=== PATIENT | male | born 1990 | race African-American/Black ===

== ENCOUNTER 2022-10-12 11:03 | Emergency (ER) | payer MEDICAID, SELFPAY ==
[2022-10-12 11:09] VITALS: BP 107/74; PULSE 93; RESP 18; TEMP 36.9; O2SAT 100; BMI 28.9
--- NOTE | 2022-10-12 11:13 | ED_ITS ---
HPI - General Adult General Time Seen by Provider: 11:13 Date Seen: 10/12/22 Chief complaint: Extremity Pain/Injury, Upper Stated complaint: chest pain Time Seen by Provider: 10/12/22 11:13 Source: patient and RN notes reviewed Mode of arrival: ambulatory Limitations: no limitations History of Present Illness HPI narrative: Patient is having complaint of pain along his left anterior axillary area. He states he felt the muscles jumping in there for brief. This morning. States it really hurts to lay on that side of his chest. Denies any recent injury or trauma but states he was injured a while back at work. He states he feels numb on the back of the shoulder at times. It hurts in the shoulder. No acute trauma or injury noted. No fevers or chills. He has not been ill with anything no cough or cold symptoms. No associated GI symptoms. No fevers or chills. Is not aware of any palpable mass or lesion in the anterior axilla area. Patient is being treated for a herniated disc per report in his lumbar spine. Patient is been having symptoms for days now but when he awoke this morning it was really painful. Usually sleeps on his side. Related Data Home Medications Medication Instructions Recorded Confirmed gabapentin 300 mg capsule mg 10/12/22 Previous Rx's Medication Instructions Recorded cyclobenzaprine 10 mg tablet 10 mg PO TID PRN muscle spasm #20 10/12/22 tabs Allergies Allergy/AdvReac Type Severity Reaction Status Date / Time No Known Drug Allergies Allergy Verified 10/12/22 11:12 Review of Systems Status of ROS: Reports: 6 or more systems reviewed and unremarkable except as noted in History and below Exam Const: Vital Signs, click to edit/add: Vital Signs - 24 hr 10/12/22 11:09 Temperature 98.5 F Pulse Rate [Right Pulse Oximeter] 93 Respiratory Rate 18 Blood Pressure [Ri ght Upper Arm] 107/74 Pulse Oximetry 100 Oxygen Delivery Me thod Room Air Documenting provider has reviewed patient's vital signs: yes Common normals: no apparent distress, average body habitus, oriented x3, no limitations, healthy appearing, alert and well nourished General appearance: cooperative, comfortable, well kempt and well developed Other: Patient did take off his clothing when I was in the room. Is easily able to reach is arms over his head without any difficulty. On my examination, complains of left paresis spinous tenderness no midline tenderness over the neck. Complains of pain throughout his thoracic spine, left interscapular area, left trapezius. Clavicle and AC joint are nontender on the left. Has good full range of motion of his left glenohumeral joint but complains of pain generally on range of motion. Complains of significant pain when I palpate along the left anterior axillary line in the left axilla, over the left anterior chest wall diffusely in into the left costochondral junctions, sternum. He has diffuse tenderness and states it hurts when I palpate throughout everywhere on his left chest wall. There are no palpable lesions, no visible skin changes. Does have more prominent gynecomastia but is symmetric. HENMT: Common normals: normocephalic, head/scalp atraumatic, hearing grossly normal bilaterally, external ears normal, external nose normal and nasal mucous membranes and turbinates normal Head and scalp: normocephalic and atraumatic Nose: external nose normal and nasal mucous membranes and turbinates normal External ear: external ears normal Eye: Common normals: PERRL, EOMs intact bilaterally, conjunctivae normal and no scleral icterus Conjunctiva: conjunctiva(e) normal Pupil: PERRL Neck & C-Spine: Common normals: full ROM, no lymphadenopathy, supple, no meningeal signs, no JVD and thyroid normal Thyroid: thyroid normal Chest: Common normals: inspection of chest normal Other: Diffuse left chest wall tenderness, see above Resp: Common normals: normal respiratory effort, no retractions, no use of accessory muscles and clear to auscultation bilaterally Effort & inspection: able to speak in complete sentences Auscultation: clear to auscultation bilaterally Cardio: Common normals: no JVD, regular rate, regular rhythm, S1 normal heart sound, S2 normal heart sound, no gallops, no clicks, no murmurs and no rub Rate: regular rate Rhythm: regular rhythm Heart sounds: S1 normal and S2 normal GI: Common normals: Normal to inspection, nondistended, normoactive bowel sounds present and soft to palpation Palpation: soft Neuro: Common normals: oriented x3 Sensorium/orientation: alert Meningeal signs: no meningeal signs Psych: Appearance: well kempt Course Course Hospital Course: Reviewed with patient that we would undertake some imaging, will do chest x-ray in his left shoulder. Will also look at the unlikely possibility of cardiac issues, will obtain an EKG and troponin. This really seems clinically to be musculoskeletal but will do some brief evaluation to ensure were not missing underlying significant pathology. Reevaluation(s) Reevaluation #1: Reviewed with patient his normal imaging on his chest x-ray in his left shoulder. His EKG is reassuring, troponin is normal as is his CBC. We discussed conservative management, he is comfortable with the plan. Time: 12:52 Vital Signs Vital signs: Initial Vital Signs Temperature 98.5 F 10/12/22 11:09 Temperature Source Temporal Artery Scan 10/12/22 11:09 Pulse Rate 93 10/12/22 11:09 Respiratory Rate 18 10/12/22 11:09 Blood Pressure 107/74 10/12/22 11:09 Blood Pressure Mean 85 10/12/22 11:09 Blood Pressure Position Sitting 10/12/22 11:09 Pulse Oximetry 100 10/12/22 11:09 Oxygen Delivery Method 10/12/22 11:09 Vital Signs Temperature 98.5 F 10/12/22 11:09 Pulse Rate 93 10/12/22 11:09 Respiratory Rate 18 10/12/22 11:09 Blood Pressure 107/74 10/12/22 11:09 Pulse Oximetry 100 10/12/22 11:09 Oxygen Delivery Method 10/12/22 11:09 Temperature 98.5 F 10/12/22 11:09 Pulse Rate 93 10/12/22 11:09 Respiratory Rate 18 10/12/22 11:09 Blood Pressure 107/74 10/12/22 11:09 Pulse Oximetry 100 10/12/22 11:09 Oxygen Delivery Method 10/12/22 11:09 Medical Decision Making Lab Data Lab results reviewed: Yes I reviewed the patient's lab results Labs: Lab Results 10/12/22 10/12/22 Range/Units 12:00 12:00 WBC 5.53 (4.50-11.00) K/uL RBC 5.46 (4.30-5.90) m/uL Hgb 15.5 (13.5-17.5) gm/dL Hct 46.0 (37.0-53.0) % MCV 84 (80-100) fL MCH 28 (26-34) pg MCHC 34 (32-36) gm/dL RDW Coeff of Ren 12.8 (11.5-15.5) % Plt Count 275 (140-440) K/uL Neut % (Auto) 39.6 L (42.0-72.0) % Lymph % (Auto) 49.7 H (20-44) % Franklin % (Auto) 8.1 (0.0-11.0) % Eos % (Auto) 1.8 (0.0-7.0) % Baso % (Auto) 0.4 (0.0-3.0) % Neut # (Auto) 2.20 (1.7-7.0) K/uL Lymph # (Auto) 2.70 (0.90-2.90) K/uL Franklin # (Auto) 0.40 (0.00-0.90) K/UL Eos # (Auto) 0.10 (0.00-0.50) K/uL Baso # (Auto) 0.02 (0.00-0.30) K/uL Abs Immat Gran (auto) 0.02 (0.00-0.30) K/uL Imm/Tot Granulo (auto) 0.4 % POC Troponin I 0.00 L (0.01-0.04) ng/ml Imaging Data X-ray left shoulder: Attestation: I have reviewed the pertinent imaging results. My impression: No acute pathology on my preliminary read. Radiologist's impression: Patient: DONITA ALMANZA Facility:?[facility] Patient ID:?[id number] Site Patient ID:?[id number]. Site :?1990 Study:?XRay Shoulder Left 3 VIEWS-10/12/2022 11:44:28 AM Ordering Physician:?Mariusz Rodrigues Final Report: Indication: Left shoulder pain. Technique: Left shoulder 3 views. Comparison: None. Findings: Bones: Alignment is normal. No fractures or bone lesions. Joint spaces: Unremarkable. Soft tissues: Unremarkable. Impression: Unremarkable left shoulder. No specific finding to explain pain. Dictated by Dipesh Ferreira MD @ 10/12/2022 11:48:36 AM (Electronic Signature) Chest x-ray: Attestation: I have reviewed the pertinent imaging results. My impression: No acute cardiopulmonary change on my preliminary read. Radiologist's impression: Patient: DONITA ALMANZA Facility:?[facility] Patient ID:?[id number] Site Patient ID:?[id number]. Site :?1990 Study:?XRay Chest 2 VIEWS-10/12/2022 11:45:40 AM Ordering Physician:Janneth Rodrigues Final Report: INDICATION: left chest wall pain TECHNIQUE: Chest 2 views COMPARISON: 10/25/2021 FINDINGS: Cardiovascular and mediastinum: Heart size and vasculature are normal in caliber and appearance. Lungs and pleural spaces: Lungs are clear. No sign of infiltrate or mass. No sign of pleural effusion. No pneumothorax. Bones and soft tissues: No significant findings. IMPRESSION: No acute findings. Dictated by Dipseh Ferreira MD @ 10/12/2022 11:49:59 AM (Electronic Signature) Critical Care Time Critical Care Time Critical Care Time: No Discharge Plan Discharge Clinical Impression: Left-sided chest wall pain Patient Disposition: Home, Self-Care Condition: Stable Instructions: Chest Wall Pain (ED) Additional Instructions: Can use Tylenol and/or ibuprofen per bottle directions as needed for discomfort. Have provided a prescription for a muscle relaxant to see if this helps. Follow prescription dosing and know that this can be sedating. Do not recommend driving or operating machinery while using this. Can try ice or heat and see whichever makes your chest wall feel better. If you are not improving over the next week, feel you are worsening at any point or have new concerns, please seek re-evaluation. Activity Level: Activity as Tolerated Prescriptions: New cyclobenzaprine 10 mg tablet 10 mg PO TID PRN (Reason: muscle spasm) Qty: 20 0RF No Action gabapentin 300 mg capsule Label Comments: TAKE 1 CAPSULE BY MOUTH TWICE DAILY Follow Up/Referrals: Provider,Not a Local [Primary Care Provider] - Stand Alone Forms: [facility] Info Instructions
--- NOTE | 2022-10-12 11:20 | CRLHL7_ITS ---
For Patients: As a result of the Century Cures Act, medical imaging exams and procedure reports are released immediately into your electronic medical record. You may view this report before your referring provider. If you have questions, please contact your health care provider. INDICATION: left chest wall pain TECHNIQUE: Chest 2 views COMPARISON: 10/25/2021 FINDINGS: Cardiovascular and mediastinum: Heart size and vasculature are normal in caliber and appearance. Lungs and pleural spaces: Lungs are clear. No sign of infiltrate or mass. No sign of pleural effusion. No pneumothorax. Bones and soft tissues: No significant findings. IMPRESSION: No acute findings. Dictated by Dipesh Ferreira MD @ 10/12/2022 11:49:59 AM (Electronically Signed)
--- NOTE | 2022-10-12 11:20 | CRLHL7_ITS ---
For Patients: As a result of the Century Cures Act, medical imaging exams and procedure reports are released immediately into your electronic medical record. You may view this report before your referring provider. If you have questions, please contact your health care provider. Indication: Left shoulder pain. Technique: Left shoulder 3 views. Comparison: None. Findings: Bones: Alignment is normal. No fractures or bone lesions. Joint spaces: Unremarkable. Soft tissues: Unremarkable. Impression: Unremarkable left shoulder. No specific finding to explain pain. Dictated by Dipesh Ferreira MD @ 10/12/2022 11:48:36 AM (Electronically Signed)
[2022-10-12 12:08] LABS: Basophils Absolute Auto 0.02 K/uL (0.00-0.30); Basophils Percent Auto 0.4 % (0.0-3.0); Eosinophils Percent Auto 1.8 % (0.0-7.0); Hemoglobin* 15.5 gm/dL (13.5-17.5); Immature Granulocytes Abs Auto 0.02 K/uL (0.00-0.30); Immature Granulocytes Pct Auto 0.4 %; Lymphocytes Percent Auto 49.7 % (20-44); Mean Corpuscular HGB Conc 34 gm/dL (32-36); Mean Corpuscular Hemoglobin 28 pg (26-34); Mean Corpuscular Volume 84 fL (80-100); Monocytes Percent Auto 8.1 % (0.0-11.0); Neutrophils Percent Auto 39.6 % (42.0-72.0); Platelet Count* 275 K/uL (140-440); RDW Coefficient of Variation % 12.8 % (11.5-15.5); Red Blood Count 5.46 m/uL (4.30-5.90); White Blood Count* 5.53 K/uL (4.50-11.00)
[2022-10-12 12:12] VITALS: BP 121/74; PULSE 77; RESP 18; O2SAT 100
[2022-10-12 12:19] LABS: Slide Review Reflex No
[2022-10-12 13:12] VITALS: BP 121/74; PULSE 77; RESP 18; TEMP 36.9
== END 2022-10-12 13:12 | disposition home or self-care (01) ==
PROVIDERS: Emergency Provider Family Medicine
DX: R07.89 Other chest pain (principal)
CPT/HCPCS: 36415; 71046; 73030; 84484; 85025; 93005; 99284; 99285

== ENCOUNTER 2025-01-25 02:36 | Emergency (ER) | payer MEDICAID, SELFPAY ==
--- OUTSIDE RECORDS SUMMARY | 2025-01-25 02:38 | XMS_ITS | Continuity of Care Document ---
Author Organization [facility] Address [address] [facility] [place] [address] Phone Care Team Providers Care Door To Door Salesman Name Role Phone Verónica Bruce MD Unavailable Unavailable Allergies, Adverse Reactions, Alerts Substance Reaction Status Criticality No Known Allergies Active No Inform ation Medications Medication Instructions Dosage Effective Dates (start - stop) Status Comments DULOXETINE DR 30MG CAPSULES TAKE 1 CAPSULE BY MOUTH TWICE DAILY - Active ibuprofen 200 mg tablet Take 200 mg by mouth. - Active Tylenol 325 mg tablet take 1 - 2 tablet by oral route every 4 - 6 hours as needed 325-650 MG - Active hydrocodone 5 mg-acetaminophen 325 mg tablet take 1 tablet by oral route once daily as needed for severe chronic pain only - No Longer Active pregabalin 100 mg capsule take 1 capsule by oral route 2 times every day 100 MG - No Longer Active meloxicam 7.5 mg tablet take 1 tablet by oral route 2 times every day 7.5 MG - No Longer Active Procedures Procedure Date LT SINGLE-DRAIN/INJECT, JOINT/BURSA NEEDLE LOCALIZATION BY Flouroscopy Drug Urine Toxology With Chromatography OFFICE/OUTPATIENT VISIT, EST OFFICE/OUTPATIENT VISIT, EST OFFICE/OUTPATIENT VISIT, EST OFFICE/OUTPATIENT VISIT, EST OFFICE/OUTPATIENT VISIT, EST OFFICE/OUTPATIENT VISIT, EST LT Major Joint Or Bursa Inj With Ultraso und ROUTINE BLOOD DRAW Drug Urine Toxology With Chromatography PT-FOCUSED HLTH RISK ASSMT Foll-up eval q3mo opiod tx OFFICE/OUTPATIENT VISIT, NEW Advance Directives Directive Yes / No Effective Date File Name No Information Encounters Encounter Description Practice Location Reason(s) For Visit Diagnoses Date Provider Providers Copied on Encounter [facility], [address], [place], [id number] , [place] tel:[phone] [facility] Pain in left shoulder 3 Janis Sanches. [address] [place], [place], [id number] , [place]. tel:[phone] Referring Provider: Dinora Sampson [address] [facility], [place], [address]. tel:[phone] [facility], [address] [place] [address], [id number] , [place] tel:[phone] [facility] [place] No Information 3 Drea Davis. [address], [place], [id number] , [place]. tel:[phone] Referring Provider: Dinora Sampson [address] [facility], [place], [address]. tel:[phone] OFFICE/OUTPA TIENT VISIT, [facility], [address] [place] [address], [id number] , [place] tel:[phone] [facility] [place] Widespread pain (chief complaint) Chronic pain syndromePain in left shoulderPain in right kneePain in left kneeRadiculopathy, cervical regionRadiculopath y, lumbar regionMyalgia, other siteEncounter for therapeutic drug level monitoring 3 Drea Davis. [address], [place], [id number] , [place]. tel:[phone] Referring Provider: Dinora aSmpson [address] [place], [address]. tel:[phone] OFFICE/OUTPA TIENT VISIT, [facility], [address], [place], [id number] , [place] tel: [phone] [facility] Widespread pain (chief complaint) Chronic pain syndromePain in right kneePain in left kneeRadiculopathy, lumbar regionMyalgia, other siteRadiculopathy, cervical regionPain in left shoulder Apr-2 - 3 Shpeard Ryan. [address], [facility], [place], [id number] , [place]. tel: [phone] Referring Provider: Dinora Sampson [address] [place], [address]. tel:[phone] OFFICE/OUTPA TIENT VISIT, [facility], [address], [place], [id number] , [place] tel: [phone] [facility] Widespread pain (chief complaint) Chronic pain syndromePain in left kneeRadiculopathy, lumbar regionMyalgia, other sitePain in right knee Mar-2 3 Shepard Ryan. [address], [place], [place], [id number] , [place]. tel:[phone] Referring Provider: Dinora Sampson [address] [place], [address]. tel:[phone] OFFICE/OUTPA TIENT VISIT, [facility], [address], [place], [id number] , [place] tel:[phone] [facility] Widespread pain (chief complaint) Chronic pain syndromePain in left kneeRadiculopathy, lumbar regionMyalgia, other site Matteo- 2 Shepard Ryan. [address], [place], [place], [id number] , [place]. tel: [phone] Referring Provider: Dinora Sampson [address] [place], [address]. tel:[phone] [facility], [address] [place] [address], [id number] , [place] tel: [phone] Telehealth No Information February- 0-202 2 Drea Davis. [address], [place], [place], [id number] , [place]. tel: [phone] OFFICE/OUTPA TIENT VISIT, [facility], [address] [place] [address], [id number] , [place] tel: [phone] [facility] [place] Widespread pain (chief complaint) Chronic pain syndromeRadiculopa thy, lumbar regionPain in left kneeMyalgia, other site Nov-3 0-202 1 Drea Davis. [address] [place] [address] [address], [place], [place], [id number] , [place]. tel:[phone] Referring Provider: Dinora Sampson [address] [place], [address]. tel:[phone] OFFICE/OUTPA TIENT VISIT, [facility], [address] [place] [address], [id number] , [place] tel: [phone] [facility] [place] Widespread pain (chief complaint) Chronic pain syndromeRadiculopa thy, lumbar regionPain in left kneeMyalgia, other site Sep-0 2-202 1 Drea Davis. [address] [place] [address] [address], [place], [place], [id number] , [place]. tel:[phone] Referring Provider: Dinora Sampson [address] [place], [address]. tel:[phone] [facility], [address] [place] [address], [id number] , [place] tel:[phone] [facility] Pain in left knee Sep-0 1-202 1 Amna Chau. [facility], [address], [place], [address], [place]. tel:[phone] Referring Provider: Dinora Sampson [address], [place], [address]. tel:[phone] [facility], [address], [place], [id number] , [place] [phone] [facility] [place] No Information 1 Shepard Ryan. [address], [place], [place], [id number] , [place]. [phone] Referring Provider: Eleuterio Interiano, [address] [place] [address], [address] . tel:[phone] OFFICE/OUTPA TIENT VISIT, [facility], [address], [place], [id number] , [place] [phone] [facility] Widespread pain (chief complaint) Chronic pain syndromeRadiculopa thy, lumbar regionPain in left kneeMyalgia, other siteEncounter for screening, unspecifiedEncount er for therapeutic drug level monitoring 1 Drea Davis. [address], [place], [place], [id number] , [place]. [phone] Referring Provider: Dinora Sampson [address], [place], [address]. tel:[phone] Family History Family Member Type Diagnosis Age At Onset No Information Payers Payer name Insurance type Covered libertarian ID uvaldo leticiakahlil(s) [facility] [id number] Social History Type Description Quantity Date Captured Comments Sex Male Smoking Status No Information Chief Complaint And Reason For Visit No Information Reason For Referral Reason For Referral No Information Plan Of Treatment Date Type Action Status Goal Medication Recon ciliation. Due on due Goal Update Social Hi story. Due on due Goal Height. Due on d ue Goal Unhealthy drug u se screening. Due on due Goal PHQ-9. Due on du e Goal Review Allergy L ist. Due on due Goal Tobacco Use. Due on due Goal Weight. Due on d ue Goal Hepatitis C scre ening. Due on due Goal Update Social Hi story. Due on due Goal Medication Recon ciliation. Due on due Goal Height. Due on d ue Goal Hepatitis C scre ening. Due on due Goal PHQ-9. Due on du e Goal Weight. Due on d ue Goal Review Allergy L ist. Due on due Goal Tobacco Use. Due on due Goal Unhealthy drug u se screening. Due on due Goal Medication Recon ciliation. Due on due Goal PHQ-9. Due on du e Goal Weight. Due on d ue Goal Unhealthy drug u se screening. Due on due Goal Tobacco Use. Due on due Goal Hepatitis C scre ening. Due on due Goal Review Allergy L ist. Due on due Goal Update Social Hi story. Due on due Goal Height. Due on d ue Goal Height. Due on d ue Goal Weight. Due on d ue Goal Unhealthy drug u se screening. Due on due Goal Review Allergy L ist. Due on due Goal Medication Recon ciliation. Due on due Goal Tobacco Use. Due on due Goal PHQ-9. Due on du e Goal Hepatitis C scre ening. Due on due Goal Update Social Hi story. Due on due Goal PHQ-9. Due on du e Goal Tobacco Use. Due on due Goal Update Social Hi story. Due on due Goal Medication Recon ciliation. Due on due Goal Review Allergy L ist. Due on due Goal Height. Due on d ue Goal Weight. Due on d ue Goal Medication Recon ciliation. Due on due Goal Review Allergy L ist. Due on due Goal Height. Due on d ue Goal Update Social Hi story. Due on due Goal Weight. Due on d ue Goal PHQ-9. Due on du e Goal Tobacco Use. Due on due Goal Update Social Hi story. Due on due Goal PHQ-9. Due on du e Goal Height. Due on d ue Goal Medication Recon ciliation. Due on due Goal Review Allergy L ist. Due on due Goal Tobacco Use. Due on due Goal Weight. Due on d ue Goal Medication Recon ciliation. Due on due Goal Height. Due on d ue Goal Update Social Hi story. Due on due Goal Weight. Due on d ue Goal Tobacco Use. Due on due Goal PHQ-9. Due on du e Goal Review Allergy L ist. Due on due Future Order: Radiology Order MR Knee WO Right ([id number]), Ordered on: Ordered Future Order: Radiology Order MR Knee WO Left ([id number]), Ordered on: Ordered History Of Present Illness Encounter Date Complaint History Of Prese nt Illness Widespread pain Location of the pain is lower back, neck, right shoulder and right knee. Pertinent negatives include diarrhea, fatigue, fever and incontinence (urinary). Comments: Sarah schneider presents for follow up regarding chronic widespread pain. C/o pain in the neck, low back, L shoulder, and R knee. His primary concern is current the worsening L shoulder pain. He completed a L shoulder MRI through [facility], and the majority of the appointment was spent discussing the imaging. The pt is interested in starting opioid therapy until able to treat the L shoulder pain. Continues with Lyrica. Denies side effects. No other concerns. Widespread pain Severity level i s 9. Duration: chronic. Location of the pain is neck and left shoulder. The client describes it as sharp, achy and burning. It occurs persistently. The problem is worsening. Symptom is aggravated by bending, walking upstairs, walking downstairs, standing, movement and lifting. Relieving factors include rest, heat, cold and Rx Meds. Pertinent negatives include diarrhea, fatigue, fever and incontinence (urinary). Comments: Sarah schneider presents for follow-up. Reports overall pain continues to worsen since ECTOR.Primary complaint today of new L shoulder/neck pain. Was seen at [facility] where XR was completed, findings normal. He would like to proceed with left shoulder and cervical MRI to evaluate for pathology. Has benefited from pregabalin. Denies any side effects at this time and would like to increase dosage. Denies needing refill of topamax today.Patient is not accompanied and has no other concerns today. Widespread pain Severity level i s 9. Duration: chronic. Location of the pain is lower back and bilateral knee. The client describes it as sharp, achy, burning and tingling. It occurs persistently. The problem is worsening. Symptom is aggravated by bending, walking upstairs, walking downstairs, standing, supine, lifting and movement. Denies relieving factors. Pertinent negatives include diarrhea, fatigue, fever and incontinence (urinary). Comments: Sarah schneider presents for follow-up for lower back, last seen 05/11/22. Reports overall pain continues to worsen since ECTOR. Reports pain radiation from L low back down L leg. Reports increased BL knee pain (R>L) with swelling, beginning several months ago. Expresses interest in obtaining imaging, injections through [facility], and possible referral to a specialist.Lower back pain continues to be debilitating. Also reports burning in bilateral feet. Continues to follow up with Dr. Zarate, who recommended surgery. States he is not pursuing surgery currently, but plans to in the future.Patient is not accompanied and has no other concerns today. Widespread pain Severity level i s 9. Duration: chronic. The client describes it as sharp, achy, burning and tingling. It occurs persistently. The problem is worsening. Symptom is aggravated by bending, walking upstairs, walking downstairs, running, sitting, standing, walking, supine, prolonged positioning, movement and housework. Denies relieving factors. Pertinent negatives include diarrhea, fatigue, fever and incontinence (urinary). Comments: Sarah schneider presents for follow-up for lower back and L knee pain. Reports overall pain to continue to worsen since last OV. Reports pain radiation from L low back down L leg. Continues to deny benefit from medications and injections. Lower back pain continues to be debilitating. Details increased L knee pain. Also reports increased burning in bilateral feet. Lengthy discussion had about how this may be r/t his lower back. Continues to follow up with Dr. Zarate. States he has a lumbar MRI later today through [facility]. Hopes to move forward with surgery. Previous ALF's have provided approximately three days of relief. Medications do not help his pain. Patient is not accompanied and has no other concerns today. Widespread pain (comments) Aleida liu presents for follow-up for lower back and L knee pain. Reports overall pain to continue to worsen since last OV. Continues to deny benefit from medications and injections. Lower back pain continues to be debilitating. Details increased L knee pain. Also reports increased burning in bilateral feet. Lengthy discussion had about how this may be r/t his lower back. He looks forward to consulting with Dr. Zarate on 10/13/21. Patient is not accompanied and has no other concerns today. Widespread pain Severity level i s 10. Duration: chronic. Location of the pain is lower back and left knee. The patient describes it as sharp, achy, burning and tingling. It occurs persistently. The problem is worsening. Symptom is aggravated by bending, walking upstairs, walking downstairs, running, sitting, standing, walking, twisting, prolonged positioning and movement. Denies relieving factors. Widespread pain (comments) Aleida liu presents for initial follow-up for lower back and L knee pain. Reports overall pain to be unchanged since last OV. S/p L knee injection on 06/29/21 provided little to no relief. Details L knee numbness, but denies pain relief. Continues to detail bothersome lower back pain with radicular symptoms down leg. Discussed Lumbar MRI results. Pain continues to be debilitating and inhibits him from working. Requests a referral to a surgeon. Patient is not accompanied and has no other concerns today. Widespread pain Duration: chroni c. Location of the pain is lower back and bilateral knee. The patient describes it as sharp, achy and burning. It occurs persistently. The problem is stable. Symptom is aggravated by bending, walking upstairs, walking downstairs, sitting and standing. Relieving factors include rest and medications. Pertinent negatives include diarrhea, fatigue, fever and incontinence (urinary). Widespread pain (comments) Aleida liu is here for initial consult for low back and knee pain. He is referred by Dr. Shaji Hargrove MD through [facility]. The patient is a 30 y/o male who presents with low back and L knee pain following an injury at work that occurred on 08/17/20. Injury occurred when he tried to move a large machine. He is currently unemployed d/t the pain. States lower back pain radiates into bilateral lower extremities. He has been following with [facility]. L knee pain causes him to ambulate with a limp. Per pt report. he occasionally uses a cane. Secondarily reports numbness in bilateral hands. The patient is currently managed on gabapentin and Tylenol with minimal relief.Patient is interested in pain management options offered through [facility]. Discloses that he has had some anxiety and depression over the last year. No other concerns today. Widespread pain Severity level i s 10. Duration: chronic. Location of the pain is lower back, bilateral hand and left knee. It occurs persistently. Symptom is aggravated by bending, walking upstairs, walking downstairs, running, sitting, standing, walking, supine, movement, housework, prolonged positioning and. Denies relieving factors. Functional Status Date Functional Assessmen t No Information Instructions Date Instruction Additional Infor mation No Information Assessments Type Assessment Date No Information Patient Care Teams Name Effective Dates (start - stop) Status Members No Information
--- OUTSIDE RECORDS SUMMARY | 2025-01-25 02:38 | XMS_ITS | Clinical Summary ---
Author Organization [facility] Address [address] [place] [address] Care Team Providers Care Oil Well Cable Tool Driller Name Role Phone No Primary/Referring, Phy Primary Care Provider Unavailable Source Comments You are receiving this document as you are listed as the primary care provider,follow-up provider, or the patient has been referred to you for consultation.This is in compliance with the Medicare and[facility] EHR Incentive Program,which states Providers who transition their patient to another setting of careor provider of care or refers their patient to another provider of care shouldprovide summary care record for each transition of care or referral. [facility] Allergies No known active allergies Medications * This document contains information received from the source organization and may not represent a complete record from that organization. Acetaminophen (TYLENOL OR) Active ibuprofen (MOTRIN) 200 MG tablet Take 1 Tablet (200 mg) by mouth. Active sertraline (ZOLOFT) 25 MG tablet Take by mouth 25 mg every day for 2 weeks, then 12.5 mg every day for 2 weeks, then stopping 21 Tablet 3 Active doxepin (SINEQUAN) 10 MG capsule Take 1 Capsule (10 mg) by mouth daily at bedtime. PLEASE CALL [phone] TO MAKE AN APPOINTMENT FOR FURTHER REFILLS 7 Capsule 3 Active Active Problems Problem Noted Date Diagnosed Date Moderate episode of recurrent major depressive d isorder 07/21/2021 Panic attacks 07/21/2021 Adjustment disorder with anxious mood 07/21/2021 Social History Tobacco Use Types Packs/Day Years Used Date Smoking Tobacco: Never Smokeless Tobacco: Never Sex and Gender Information Value Date Recorded Sex Assigned at Not on file Legal Sex Male 12:[address] [facility] Gender Identity Not on file Sexual Orientation Not on file Last Filed Vital Signs Vital Sign Reading Time Taken Comments Blood Pressure 112/64 02/03/2022 3:58 PM CDT Pulse 100 02/03/2022 3:58 PM CDT Temperature 36.6 C (97.8 F) 09/08/2022 3:[address] [facility] Respiratory Rate 16 02/03/2022 3:58 PM CDT Oxygen Saturation 100% 01/25/2021 3:47 PM CDT Inhaled Oxygen Concentration - - Weight 86.2 kg (190 lb) 09/08/2022 3:[address] [facility] Height 157.5 cm (5' 2) 09/08/2022 3:[address] [facility] Body Mass Index 34.75 09/08/2022 3:[address] [facility] Plan of Treatment Health Maintenance Due Date Last Done Comments Hep C Screening (Preventive Services) 1991 Tuberculosis Screening 1991 Hep B Screening ([facility]) 1992 IPV (Polio) (2 of 3 - 4-dose series) 12/22/2005 11/24/2005 HIV Screening (Preventive Services) 2007 Adult Preventive Visit 2009 HepB (1) 2010 COVID-19 Vaccine ( - 2023-2 5 season) 2024 Influenza (#1) 2024 DTaP/Tdap/Td (3 - Tdap) 08/05/2028 08/05/20 18, 06/21/2006 Zoster/Shingles (1 of 2) 2041 MCV4 Aged Out 05/29/2018, 06/21/2006 No longer eligible based on patient's age to complete this topic HPV Vaccine Aged Out No longer eligi ble based on patient's age to complete this topic HepA Aged Out No longer eligi ble based on patient's age to complete this topic Hib Aged Out No longer eligi ble based on patient's age to complete this topic Meningococcal B Aged Out No longer el igible based on patient's age to complete this topic Pneumococcal Aged Out No longer eligi ble based on patient's age to complete this topic Insurance [facility] [address] [place] [id number] [facility] Care Teams Oil Well Cable Tool Driller Relationship Specialty Start Date End Date No Primary/Referring, Phy PCP - General 04/07/21
--- OUTSIDE RECORDS SUMMARY | 2025-01-25 02:38 | XMS_ITS | Patient Health Record ---
Author Organization [facility] Address [address] [place] [address] Care Team Providers Care Marriage Counselor Name Role Phone Heather Talavera Primary Care Provider [phone] Reason For Referral No Information Immunizations Vaccine Route Administration Date Status Comme nts Menactra (9 months-55 years) MenACWY vaccine IM Intramuscular 05/29/2018 Administered Social History Tobacco Use: Social History Observation Description Date Details (start date - stop date) Never Smoker NA - NA Tobacco Use/Smoking Question Answer Notes Are you a nonsmoker Alcohol Screen (Audit-C) Question Answer Notes Did you have a drink containing alcohol in the p ast year? No Points 0 Interpretation Negative Sexual History Question Answer Notes Had sex in the past 12 months (vaginal, oral, or anal)? No Have you ever had a Sexually transmitted disease ? No PHQ2 In last 2 weeks you have been bothered by Question Answer Notes Little interest or plesure in doing things No Feeling down, depressed,or hopeless No Plan Of Treatment No Information
--- OUTSIDE RECORDS SUMMARY | 2025-01-25 02:38 | XMS_ITS ---
Author Organization [facility] Address [address] [place] [address] [address] [place] [address] Care Team Providers Care Warehouse Assembly Worker Name Role Phone Shaji Hargrove Primary Care Provider Samy Elizabeth [phone] Cory Olsen PA-C Unavailable Unavailable REASON FOR VISIT Other Encounters Encounter Location Date Provider Diagnosis [place] [id number] [facility] [address] [place] [address] [place] [id number] 07/17/2024 Samy Cameron Plan Of Treatment No Information Progress Notes * Tennille ARAUJO MDOB: [birth year] (33 yo M)Acc No.[id number]:07/17/2024 Patient: Scott VALENTEahim Gagandeep :1990 A ge:33 Y S ex:Male Phone: Address:[address] [place] [address], [address], [place] [address] * true * Date: Generated for Avei ng/Fatristang/eTransmitting on: 0 01/25/2025 02:37 AM CDT
--- OUTSIDE RECORDS SUMMARY | 2025-01-25 02:38 | XMS_ITS | Patient Health Record ---
Author Organization [facility] Address [address] [place] [address] [address] [place] [address] Care Team Providers Care Ferryboat Helper Name Role Phone Shaji Hargrove Primary Care Provider Samy Elizabeth Unavailable [phone] Cory Olsen PA-C Unavailable Unavailable Allergies No Known Allergies Reason For Referral No Information Medications Medication SIG (Take, Route, Fr equency, Duration) Notes Start Date End Date Status Escitalopram Oxalate Active DULoxetine HCl Activ e Pregabalin Active Social History Tobacco Use: Social History Observation Description Date Details (start date - stop date) Never Smoker NA - NA Tobacco Use/Smoking: Question Answer Notes Are you a nonsmoker Alcohol Screen Question Answer Notes Did you have a drink containing alcohol in the p ast year? 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) Active confirmed Problem Somatic dysfunction of lumbar region (160527262) Segmental and somatic dysfunction of lumbar region (M99.03) Active confirmed Problem Low back pain (669692959) Low back pain (M54.50) Active confirmed Problem Lumbar radiculopathy (054926060) Lumbar radiculopathy (M54.16) Active confirmed Encounters Encounter Location Date Provider Diagnosis [facility] [address] [place] [address] 07/17/2024 Samy Cameron Plan Of Treatment No Information Insurance Providers Payer Name Payer Address Payer Phone Subscriber Number Group Number Insured Name Patient Relationship to Insured Coverage Start Date Coverage End Date [employer] [address] [address] [place] [id number] [id number] Tennille Araujo Self - patient is the insured [facility] [address] [place] [phone] [id number] Tennille Araujo Self - patient is the insured 2 [facility] [address] [address] [place], [place] [id number] Tennille Araujo Self - patient is the insured
--- OUTSIDE RECORDS SUMMARY | 2025-01-25 02:38 | XMS_ITS | Clinical Summary ---
Author Organization [facility] Address [address] [place] [address] Care Team Providers Care Tying In Machine Operator Name Role Phone Pcp, No Unavailable Unavailable Shaji Hargrove MD Primary Care Provider [phone] Allergies No known active allergies Medications acetaminophen (TYLENOL ORAL) Take 1,000 mg by mouth. Active ibuprofen (ADVIL; MOTRIN) 200 mg tablet Take 200 mg by mouth every 6 hours. Active benzonatate (TESSALON) 200 mg capsuleIndicatio ns:Cough, unspecified type Take 1 Capsule (200 mg) by mouth 3 times daily if needed for Cough. 21 Capsule 4 Active fluticasone (50 mcg per actuation) nasal solution (FLONASE)Indicat ions:Nasal congestion Inhale 2 Sprays in both nostrils once daily. 16 g 4 Active ondansetron (ZOFRAN) 4 mg tabletIndication s:Nausea Take 1 Tablet (4 mg) by mouth every 8 hours if needed for Nausea/Vomiti ng. 15 Tablet 4 Active Active Problems Problem Noted Date Diagnosed Date Panic attacks 07/21/2021 Moderate episode of recurrent major depressive d isorder 07/21/2021 Mild episode of depression with anxious distress 11/16/2020 Situational depression 11/16/2020 Adjustment disorder with anxious mood 11/16/2020 Immunizations Immunization Administration Dates Next Due Tdap 08/05/2018 Social History Tobacco Use Types Packs/Day Years Used Date Smoking Tobacco: Former Smokeless Tobacco: Never Tobacco Cessation:Counseling Given: Yes Comments:quit Hookah Jun, 2015 Alcohol Use Standard Drinks/Week Comments Yes 0 (1 standard drink = 0.6 oz pur e alcohol) PHQ-2 Answer Date Recorded PHQ-2 TOTAL SCORE 0 11/09/2020 Social Connections Answer Date Recorded Frequency of Communication with Friends and Fami ly Not on file 10/24/2021 Financial Resource Strain Answer Date R ecorded Difficulty of Paying Living Expenses Not on file 10/24/2021 Difficulty of Paying Living Expenses Not on file 10/24/2021 Interpersonal Safety Answer Date Record ed Are you being hit, kicked, p ushed or yelled at (see row info)? 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 Gender Identity Not on file Sexual Orientation Not on file Obstetrics History Last Filed Vital Signs Vital Sign Reading Time Taken Comments Blood Pressure 119/73 07/15/2024 3:32 PM CDT Pulse 93 07/15/2024 3:32 PM CDT Temperature 36.8 C (98.3 F) 07/15/2024 3:32 PM CDT Respiratory Rate 18 07/15/2024 3:32 PM CDT Oxygen Saturation 97% 07/15/2024 3:32 PM CDT Inhaled Oxygen Concentration - - Weight 88.6 kg (195 lb 4.8 oz) 07/15/2024 3:32 P M CDT Height 170.2 cm (5' 7) 03/15/2024 5:04 AM CDT Body Mass Index 30.59 03/15/2024 5:04 AM CDT Plan of Treatment Health Maintenance Due Date Last Done Comments HIV for age 15-65 2006 Hepatitis C screening for age 18-79 2009 Depression screening for age 12+ 11/09/2021 11/09/2020, 11/02/2020, 10/20/2020, Additional history exists BMI (ht and wt on same day) for age 18+ 08/03/2023 08/03/2022, 04/28/2022, 02/17/2022, Additional history exists COVID-19 vaccine series (2023-25 season) 2024 Influenza Vaccine (#1) 2024 Tetanus booster 08/05/2028 08/05/2018 Tdap Completed 08/05/2018 Pneumococcal series for age 6-49 Aged Out No longer eligible based on patient's age to complete this topic Insurance MEDICAID Member Subscriber Plan / Payer (Ef fective 2015-Present) Name:[place] Relation to Subscriber:Self Name:Scott Araujomina Donis Payer ID:Not on file Group ID:Not on file Type:Not on file Address: [address] [facility] Care Teams Tying In Machine Operator Relationship Specialty Start Date End Date Shaji Hargrove MD [address] [place] [address] PCP - General Occupational Medicine 07/05/21 Pcp, No . 10/13/20
--- OUTSIDE RECORDS SUMMARY | 2025-01-25 02:38 | XMS_ITS | Continuity of Care Document ---
Author Organization [facility] enter Address [address] [place] [phone] Phone Care Team Providers Care Pocketbook Maker Name Role Phone [facility] Unavailable Unava ilable Procedures Procedure Date [id number]/INJECT, JOINT/BURSA Withou t Ultrasound NEEDLE LOCALIZATION BY XRAY MAJOR JOINT OR BURSA INJ WITH ULTRASOUND Advance Directives Directive Yes / No Effective Date File Name No Information Encounters Encounter Description Practice Location Reason(s) For Visit Diagnoses Date Provider Providers Copied on Encounter [facility], [address] [place] [address], [id number], tel:[phone] [place] [address] No Information 3 [facility]. [address] [place] [address], [id number], [place]. tel:[phone] Referring Provider: Verónica Bruce, [address] [place], [address] . tel:[phone] [facility], [address] [place] [address], [id number], [place] tel:[phone] [place] [address] No Information 1 [facility]. [address] [place] [address], [id number], [place]. tel:[phone] Referring Provider: Isac Woo [address], [place], [address]. tel:[phone] Family History Family Member Type Diagnosis Age At Onset No Information Payers Payer name Insurance type Covered democrat ID Authoriza tikahlil(s) Nanda [facility] [id number] Social History Type Description Quantity Date Captured Comments Sex Male Smoking Status No Information Chief Complaint And Reason For Visit No Information Reason For Referral Reason For Referral No Information History Of Present Illness Encounter Date Complaint History Of Prese nt Illness No Information Functional Status Date Functional Assessmen t No Information Instructions Date Instruction Additional Infor mation No Information Assessments Type Assessment Date No Information Patient Care Teams Name Effective Dates (start - stop) Status Members No Information
--- OUTSIDE RECORDS SUMMARY | 2025-01-25 02:38 | XMS_ITS | Clinical Summary ---
Author Organization [facility] Address [address] [place] [address] Care Team Providers Care Physical Security Specialist Name Role Phone No Ref-Primary, Physician Primary Care Provider Allergies No known active allergies Social History Tobacco Use Types Packs/Day Years Used Date Smoking Tobacco: Never Assessed Adolescent Education Answer Date Record ed Getting School Help Needed Not on file 07/21 Sex and Gender Information Value Date Recorded Sex Assigned at Not on file Legal Sex Male 4:34 PM CDT Gender Identity Not on file Sexual Orientation Not on file Last Filed Vital Signs Vital Sign Reading Time Taken Comments Blood Pressure 142/62 01/25/2021 6:00 PM CDT Pulse 74 01/25/2021 6:00 PM CDT Temperature 37 C (98.6 F) 01/25/2021 4:38 PM CDT Respiratory Rate 16 01/25/2021 4:38 PM CDT Oxygen Saturation 99% 01/25/2021 6:00 PM CDT Inhaled Oxygen Concentration - - Weight - - Height - - Body Mass Index - - Plan of Treatment Not on file Insurance [address] [place] [address] [facility] Care Teams Physical Security Specialist Relationship Specialty Start Date End Date No Ref-Primary, Physician PCP - General 01/25/21
[2025-01-25 02:40] VITALS: BP 135/74; PULSE 95; RESP 18; TEMP 36.7; O2SAT 99; BMI 30.5
--- NOTE | 2025-01-25 02:43 | ED.GENADULT ---
HPI - General Adult General Chief complaint: Urogenital Problems, Male Stated complaint: difficulty urinating Time Seen by Provider: 01/25/25 02:43 History of Present Illness HPI narrative: CC: Urgency pt. has been having feeling of not emptying bladder for about a week. denies n/v, diarrhea, fevers. 34-year-old man presenting to emergency department with concern of not emptying his bladder Seen by myself in 2020 with similar complaints and concern of potential parasite. Unclear what came of -- he chuckles a little and says now that was probably the mental illness talking He has some tingling intermittently with voiding recently. No urgency frequency but just feels like is not fully emptying. No constipation. Denies pain with bowel movements. No testicular epididymal area pain. Did have a new partner few months ago. They have been intimate few times he said. He would be interested in being screened for chlamydia or gonorrhea and urinary tract infection. No fever. He does feel like he hydrates very well and often wait until he really has to use the restroom. He denies injury to penis or noting any abnormality/erythema or discharge himself. Related Data Home Medications ?Medication ?Instructions ?Recorded ?Confirmed No Known Home Medications 01/25/25 01/25/25 Allergies Allergy/AdvReac Type Severity Reaction Status Date / Time No Known Drug Allergies Allergy Verified 01/25/25 02:42 Review of Systems Status of ROS: Reports: 6 or more systems reviewed and unremarkable except as noted in History and below [facility] Medical History No significant past medical history Surgical History (Updated 01/25/25 @ 02:44 by Syed Neves RN) No significant past surgical history Social History Smoking Status: Never smoker Second hand tobacco smoke exposure: No How often do you have a drink containing alcohol: never AUDIT-C Alcohol total score: 0 Non-prescribed substance use: denies use Exam Narrative: Exam Narrative: Pleasant. NAD. Breathing easily. Abdomen is soft nontender. No masses appreciated. He was disinclined to exam and prostate check. Const: Vital Signs, click to edit/add: Vital Signs - 24 hr 01/25/25 02:40 01/25/25 03:25 01/25/25 03:26 Temperature 98.0 F 98.0 F 98.0 F Pulse Rate [Right Pulse Oximeter] 95 84 84 Respiratory Rate 18 18 18 Blood Pressure [Le ft Upper Arm] 135/74 125/74 125/74 Pulse Oximetry 99 99 Oxygen Delivery Me thod Room Air Room Air Documenting provider has reviewed patient's vital signs: yes Course Vital Signs Vital signs: Initial Vital Signs Temperature 98.0 F 01/25/25 02:40 Temperature Source Temporal Artery Scan 01/25/25 02:40 Pulse Rate 95 01/25/25 02:40 Respiratory Rate 18 01/25/25 02:40 Blood Pressure 135/74 01/25/25 02:40 Blood Pressure Mean 94 01/25/25 02:40 Blood Pressure Position Sitting 01/25/25 02:40 Pulse Oximetry 99 01/25/25 02:40 Oxygen Delivery Method Room Air 01/25/25 02:40 Vital Signs Temperature 98.0 F 01/25/25 02:40 Pulse Rate 95 01/25/25 02:40 Respiratory Rate 18 01/25/25 02:40 Blood Pressure 135/74 01/25/25 02:40 Pulse Oximetry 99 01/25/25 02:40 Oxygen Delivery Method Room Air 01/25/25 02:40 Temperature 98.0 F 01/25/25 03:26 Pulse Rate 84 01/25/25 03:26 Respiratory Rate 18 01/25/25 03:26 Blood Pressure 125/74 01/25/25 03:26 Pulse Oximetry 99 01/25/25 03:25 Oxygen Delivery Method Room Air 01/25/25 03:25 Medical Decision Making MDM Narrative Medical decision making narrative: Bladder scan for 125 mL; this was postvoid Recheck after next void at 47 mL approximately Does appear to be retaining a little bit more than 1 might expect in his bladder. Likely this is in under measurement actually volume knowing our scanner here. Urinalysis is collected and looks to be normal. Gonorrhea and chlamydia was pending at time of departure. This was ultimately negative Possible there is some pelvic floor/unexplained dysuria event contributing to some retention now. Have not scanned abdomen looking for further evidence of obstruction but this might be part of a workup in the future and can be done in primary care/outpatient. Would recommend frequent voids and reassessment. See patient discharge plan for further discussion Our initial bladder scan said that you had 125 mL in your bladder after your 1st void. Our 2nd bladder scan said that you had about 47 mL in your bladder after another void. It does appear that you are not completely emptying but not to a dangerous degree. It might help you to sit on the toilet, not stand at the toilet, for regular voids, maybe at least 4 times a day regardless of whether not you really feel you need to urinate. If you continue to feel like you are having trouble with retention, would follow up with the primary care provider or with urology. If this test for gonorrhea and chlamydia is positive, I will give you a call. If you do not hear from me, it was normal. Medical Records Medical records reviewed: Yes I reviewed the patient's medical records Lab Data Lab results reviewed: Yes I reviewed the patient's lab results Labs: Lab Results 01/25/25 01/25/25 Range/Units 03:00 Unknown Urine Color Light yellow (Yellow) Urine Appearance Clear (Clear) Urine pH 6.5 (5.0-8.5) Ur Specific [place] <= 1.005 (1.000-1.030) Urine Protein Negative (Negative) Urine Glucose (UA) Negative (Negative) Urine Ketones Negative (Negative) Urine Blood Negative (Negative) Urine Nitrite Negative (Negative) Urine Bilirubin Negative (Negative) Urine Urobilinogen 0.2 (0.2-1.0) Ur Leukocyte Esterase Negative (Negative) Urine RBC 0-2 (0-2) Urine WBC 0-2 (0-5) Ur Squamous Epith Cells None (None-Few) Urine Bacteria None (None) C.trachomatis Ampl DNA NOT DETECTED (No Detected) N.gonorrhoeae Ampl DNA NOT DETECTED (No Detected) Discharge Plan Discharge Clinical Impression: Urinary retention Patient Disposition: Home, Self-Care Condition: Stable Additional Instructions: Our initial bladder scan said that you had 125 mL in your bladder after your 1st void. Our 2nd bladder scan said that you had about 47 mL in your bladder after another void. It does appear that you are not completely emptying but not to a dangerous degree. It might help you to sit on the toilet, not stand at the toilet, for regular voids, maybe at least 4 times a day regardless of whether not you really feel you need to urinate. If you continue to feel like you are having trouble with retention, would follow up with the primary care provider or with urology. If this test for gonorrhea and chlamydia is positive, I will give you a call. If you do not hear from me, it was normal. Prescriptions: No Action No Known Home Medications Follow Up/Referrals: Provider,Not a Local [Primary Care Provider] - Stand Alone Forms: [employer] Info Instructions
[2025-01-25 02:45] LABS: Appearance Urine Clear (Clear); Bilirubin Urine Negative (Negative); Blood Urine Negative (Negative); Color Urine Light yellow (Yellow); Glucose Urine Negative (Negative); Ketones Urine Negative (Negative); Leukocyte Esterase Urine Negative (Negative); Nitrite Urine Negative (Negative); Protein Urine Negative (Negative); Specific Gravity Urine <= 1.005 (1.000-1.030); Urobilinogen Urine 0.2 (0.2-1.0); pH Urine 6.5 (5.0-8.5)
[2025-01-25 02:51] LABS: RBC Urine 0-2 (0-2); WBC Urine 0-2 (0-5)
--- OUTSIDE RECORDS SUMMARY | 2025-01-25 03:08 | XMS_ITS | Clinical Summary ---
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 10/13/20
--- OUTSIDE RECORDS SUMMARY | 2025-01-25 03:08 | XMS_ITS | Continuity of Care Document ---
Author Organization [facility] enter Address [address] [place] [phone] Phone Care Team Providers Care Flute Polisher Name Role Phone [facility] Unavailable Unava ilable Procedures Procedure Date [id number]/INJECT, JOINT/BURSA Withou t Ultrasound NEEDLE LOCALIZATION BY XRAY MAJOR JOINT OR BURSA INJ WITH ULTRASOUND Advance Directives Directive Yes / No Effective Date File Name No Information Encounters Encounter Description Practice Location Reason(s) For Visit Diagnoses Date Provider Providers Copied on Encounter [facility], [address] [place] [address], [id number], tel:[phone] [place] [address] No Information 3 [facility]. [address] [place] [address], [id number], [place]. tel:[phone] Referring Provider: Verónica Bruce, [address] [place], [address] . tel:[phone] [facility], [address] [place] [address], [id number], [place] tel:[phone] [place] [address] No Information 1 [facility]. [address] [place] [address], [id number], [place]. tel:[phone] Referring Provider: Isac Woo [address], [place], [address]. tel:[phone] Family History Family Member Type Diagnosis Age At Onset No Information Payers Payer name Insurance type Covered libertarian ID Authoriza tikahlil(s) Nanda [facility] [id number] Social History Type Description Quantity Date Captured [...]
--- OUTSIDE RECORDS SUMMARY | 2025-01-25 03:08 | XMS_ITS | Clinical Summary ---
Author Organization [facility] Address [address] [place] [address] Care Team Providers Care Intermediate Accountant Name Role Phone No Ref-Primary, Physician Primary [...] Treatment Not on file Insurance [address] [place] [address] [facility] Care Teams Intermediate Accountant Relationship Specialty Start Date End Date No Ref-Primary, Physician PCP - General 01/25/21
--- OUTSIDE RECORDS SUMMARY | 2025-01-25 03:08 | XMS_ITS | Continuity of Care Document ---
Author Organization [facility] Address [address] [facility] [place] [address] Phone Care Team Providers Care Career Development Consultant Name Role Phone Verónica Bruce MD Unavailable [...] Diagnoses Date Provider Providers Copied on Encounter [facility], [address] [place], [place], [id number] , [place] tel:[phone] [facility] [place] Pain in left shoulder 3 Janis Sanches. [address] [place], [place], [id number] , [place]. tel:[phone] Referring Provider: Dinora Sampson [address] [facility], [place], [address]. tel:[phone] [facility], [address] [place] [address], [id number] , [place] tel:[phone] [facility] [place] No Information 3 Drea Davis. [address], [place], [id number] , [place]. tel:[phone] Referring Provider: Dinora Sampson [address] [facility], [place], [address]. tel:[phone] OFFICE/OUTPA TIENT VISIT, [facility], [address] [place] [address], [id number] , [place] tel:[phone] [facility] [place] Widespread pain (chief complaint) Chronic pain syndromePain in left shoulderPain in right kneePain in left kneeRadiculopathy, cervical regionRadiculopath y, lumbar regionMyalgia, other siteEncounter for therapeutic drug level monitoring 3 Drea Davis. [address], [place], [id number] , [place]. tel:[phone] Referring Provider: Dinora Sampson [address] [place], [address]. tel:[phone] OFFICE/OUTPA TIENT VISIT, [facility], [address] [place], [place], [id number] , [place] tel: [phone] [facility] Widespread pain (chief complaint) Chronic pain syndromePain in right kneePain in left kneeRadiculopathy, lumbar regionMyalgia, other siteRadiculopathy, cervical regionPain in left shoulder Apr-2 - 3 Shepard Ryan. [address], [facility], [place], [id number] , [place]. tel: [phone] Referring Provider: Dinora Sampson [address] [place], [address]. tel:[phone] OFFICE/OUTPA TIENT VISIT, [facility], [address] [place], [place], [id number] , [place] tel: [phone] [facility] Widespread pain (chief complaint) Chronic pain syndromePain in left kneeRadiculopathy, lumbar regionMyalgia, other sitePain in right knee Mar-2 3 Shepard Ryan. [address], [place], [place], [id number] , [place]. tel:[phone] Referring Provider: Dinora Sampson [address] [place], [address]. tel:[phone] OFFICE/OUTPA TIENT VISIT, [facility], [address] [place], [place], [id number] , [place] tel:[phone] [facility] Widespread pain (chief complaint) Chronic pain syndromePain in left kneeRadiculopathy, lumbar regionMyalgia, other site Matteo- 2 Shepard Ryan. [address], [place], [place], [id number] , [place]. tel: [phone] Referring Provider: Dinora Sampson [address] [place], [address]. tel:[phone] [facility], [address] [place] [address], [id number] , [place] tel: [phone] Telehealth No Information February- 0-202 2 Drea Davis. [address], [place], [place], [id number] , [place]. tel:[phone] OFFICE/OUTPA TIENT VISIT, [facility], [address] [place] [address], [id number] , [place] tel: [phone] [facility] [place] Widespread pain (chief complaint) Chronic pain syndromeRadiculopa thy, lumbar regionPain in left kneeMyalgia, other site Nov-3 0-202 1 Drea Davis. [address] [place] [address] [address], [place], [place], [id number] , [place]. tel:[phone] Referring Provider: Dinora Sampson [address] [place], [address]. tel:[phone] OFFICE/OUTPA TIENT VISIT, [facility], [address] [place] [address], [id number] , [place] tel: [phone] [facility] [place] Widespread pain (chief complaint) Chronic pain syndromeRadiculopa thy, lumbar regionPain in left kneeMyalgia, other site Sep-0 2-202 1 Drea Davis. [address] [place] [address] [address], [place], [place], [id number] , [place]. tel:[phone] Referring Provider: Dinora Sampson [address] [place], [address]. tel:[phone] [facility], [address] [place] [address], [id number] , [place] tel:[phone] [facility] in left knee Sep-0 1-202 1 Amna Chau. [facility], [address], [place], [address], [place]. tel:[phone] Referring Provider: Dinora Sampson [address], [place], [address]. tel:[phone] [facility], [address] [place], [place], [id number] , [place] [phone] [facility] [place] No Information 1 Shepard Ryan. [address], [place], [place], [id number] , [place]. [phone] Referring Provider: Eleuterio Interiano, [address] [facility] [place], [address] . tel:[phone] OFFICE/OUTPA TIENT VISIT, [facility], [address] [place], [place], [id number] , [place] tel:[phone] [facility] Widespread pain (chief complaint) Chronic pain syndromeRadiculopa thy, lumbar regionPain in left kneeMyalgia, other siteEncounter for screening, unspecifiedEncount er for therapeutic drug level monitoring 1 Drea Davis. [address], [place], [place], [id number] , [place]. [phone] Referring Provider: Dinora Sampson [address], [place], [address]. tel:[phone] Family History Family Member Type Diagnosis Age At Onset No Information Payers Payer name Insurance type Covered democrat ID [id number] leticiakahlil(s) [facility] [id number] Social History Type Description Quantity Date Captured Comments Sex Male Smoking Status No Information Chief Complaint And Reason For Visit No Information Reason For Referral Reason For Referral No Information Plan Of Treatment Date Type Action Status Goal Hepatitis C scre ening. Due on due Goal Medication Recon ciliation. [...] u se screening. Due on due Goal Update Social Hi [...] Goal Weight. Due on d ue Goal Weight. Due on d ue Goal Height. Due on d ue Goal Review Allergy L ist. Due on due Goal Medication Recon ciliation. Due on due Goal Update Social Hi story. Due on due Goal Tobacco Use. Due on due Goal PHQ-9. Due on du e Goal Tobacco Use. Due on due Goal PHQ-9. Due on du e Goal Weight. Due on d ue Goal Update Social Hi story. Due on due Goal Height. Due on d ue Goal Review Allergy L ist. Due on due Goal Medication Recon ciliation. Due on due Goal Weight. Due on d ue Goal Medication Recon ciliation. Due on due Goal Review Allergy L ist. Due on due Goal Tobacco Use. Due on due Goal Update Social Hi story. Due on due Goal PHQ-9. Due on du e Goal Height. Due on d ue Goal Review Allergy L ist. Due on due Goal PHQ-9. Due on du e Goal Tobacco Use. Due on due Goal Weight. Due on d ue Goal Update Social Hi story. Due on due Goal Height. Due on d ue Goal Medication Recon ciliation. Due on due Future Order: Radiology Order MR Knee WO Right ([id number]), Ordered on: Ordered Future Order: Radiology Order MR Knee WO Left ([email or web address]), Ordered on: Ordered History Of Present Illness Encounter Date Complaint History Of Prese nt Illness Comments: Sarah schneider presents for follow up [...] side effects. No other concerns. Widespread pain Location of the pain is lower back, neck, right shoulder and right knee. Pertinent negatives include diarrhea, fatigue, fever and incontinence (urinary). Comments: Sarah schneider presents for follow-up. Reports overall pain continues to worsen since ECTOR.Primary complaint today of new L shoulder/neck pain. Was seen at [facility] where XR was completed, findings normal. He [...] Expresses interest in obtaining imaging, injections through [facility], and possible referral to a specialist.Lower back [...] has a lumbar MRI later today through [facility]. Hopes to move forward with surgery. Previous [...] fatigue, fever and incontinence (urinary). Widespread pain Severity level i s 10. [...] incontinence (urinary). Widespread pain (comments) Aleida liu presents for [...] housework, prolonged positioning and. Denies relieving factors. Widespread pain (comments) Aleida liu is here for initial consult for low back and knee pain. He is referred by Dr. Shaji Hargrove MD through [facility]. The patient is a 30 y/o [...] interested in pain management options offered through [facility]. Discloses that he has had some anxiety and depression over the last year. No other concerns today. Functional Status Date Functional Assessmen t No Information Instructions Date Instruction Additional Infor mation No Information Assessments Type Assessment Date No Information Patient Care Teams Name Effective Dates (start - stop) Status Members No Information
--- OUTSIDE RECORDS SUMMARY | 2025-01-25 03:08 | XMS_ITS | Clinical Summary ---
Author Organization [employer] Address [address] [place] [address] Care Team Providers Care Master Ocean Yacht Name Role Phone No Primary/Referring, Phy Primary Care Provider Unavailable Source Comments You are receiving this document as you are listed as the primary care provider,follow-up provider, or the patient has been referred to you for consultation.This is in compliance with the Medicare andOhio[facility] Hospitalca[facility] EHR Incentive Program,which states Providers who transition their patient to another setting of careor provider of care or refers their patient to another provider of care shouldprovide summary care record for each transition of care or referral. [facility] Allergies No known active allergies Medications * [...] by mouth daily at bedtime. 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 Gender Identity Not on file Sexual Orientation Not on file Last Filed Vital Signs Vital Sign Reading Time Taken Comments Blood Pressure 112/64 02/03/2022 3:58 PM CDT Pulse 100 02/03/2022 3:58 PM CDT Temperature 36.6 C (97.8 F) 09/08/2022 3:20 PM LENDING ADVISOR Respiratory Rate 16 02/03/2022 3:58 PM CDT Oxygen Saturation 100% 01/25/2021 3:47 PM CDT Inhaled Oxygen Concentration - - Weight 86.2 kg (190 lb) 09/08/2022 3:20 PM LENDING ADVISOR Height 157.5 cm (5' 2) 09/08/2022 3:20 PM LENDING ADVISOR Body Mass Index 34.75 09/08/2022 3:20 PM LENDING ADVISOR Plan of Treatment Health Maintenance Due Date Last Done Comments Hep C Screening (Preventive Services) 1991 Tuberculosis Screening 1991 Hep B Screening ([facility]) 1992 IPV (Polio) (2 of [...] patient's age to complete this topic Insurance [facility] [id number] [place] [id number] [facility] Care Teams Master Ocean Yacht Relationship Specialty Start Date End Date No Primary/Referring, Phy PCP - General 04/07/21
[2025-01-25 03:25] VITALS: BP 125/74; PULSE 84; RESP 18; TEMP 36.7; O2SAT 99
[2025-01-25 03:26] VITALS: BP 125/74; PULSE 84; RESP 18; TEMP 36.7
[2025-01-25 04:32] LABS: Chlamydia DNA Amplified* NOT DETECTED (No Detected); GC DNA Amplified* NOT DETECTED (No Detected)
== END 2025-01-25 03:26 | disposition home or self-care (01) ==
PROVIDERS: Emergency Provider Family Medicine
DX: R33.9 Retention of urine, unspecified (principal)
CPT/HCPCS: 51798; 81001; 87491; 87591; 99283; 99284